=== PATIENT | male | born 1965 | race Hispanic/Latino ===

== ENCOUNTER → 2019-01-04 | Outpatient (CLI) | payer OTHER | END | disposition home or self-care (01) | LOC: OIH 14:37 | PROVIDERS: ATTEND Nurse Practitioner Adult Health | DX: Z13.6 Encounter for screening for cardiovascular disorders (principal) | CPT/HCPCS: 75571 ==

== ENCOUNTER 2020-03-01 13:37 | Emergency (ER) | payer OTHER | END 2020-03-01 16:15 | disposition home or self-care (01) | LOC: EDH 13:37 | DX: R05 Cough (principal) | CPT/HCPCS: 71046; 87804 ==